=== PATIENT | male | born 1990 | race African-American/Black ===

== ENCOUNTER 2017-06-24 21:45 | Emergency (ER) | payer OTHER ==
[~2017-06-24] VITALS: Ht 205.7 cm; Wt 103.2 kg
[2017-06-24 21:46] VITALS: BP 146/76
== END 2017-06-24 23:49 | disposition home or self-care (01) ==
LOC: ED 23:16
DX: S93.491A Sprain of other ligament of right ankle, initial encounter (principal); G89.11 Acute pain due to trauma; X50.1XXA Overexertion from prolonged static or awkward postures, initial encounter; Y93.67 Activity, basketball; Y92.328 Other athletic field as the place of occurrence of the external cause; Y99.8 Other external cause status
CPT/HCPCS: 99284